=== PATIENT | female | born 1990 | race Caucasian/White ===

== ENCOUNTER 2023-07-05 03:18 | Emergency (ER) | payer MEDICAID ==
[~2023-07-05] VITALS: Ht 152.4 cm; Wt 49.9 kg
[2023-07-05 03:20] VITALS: BP 124/78; PULSE 110; RESP 16; TEMP 97.3; O2SAT 100
[2023-07-05] MEDS ORDERED: KETOROLAC 30 MG/ML VIAL IM ONE (05:50)
[2023-07-05] MEDS ORDERED: CLINDAMYCIN 900MG/D5W PM 50 ML IV ONE (06:45)
[2023-07-05] MEDS ORDERED: NACL 0.9% 1,000 ML IV ONE (06:45)
[2023-07-05 07:09] LABS: BASOPHILS % (AUTO) 0.3 % (0.0-2.0); EOSINOPHILS # (AUTO) 0.1 K/uL (0-0.4); EOSINOPHILS % (AUTO) 0.5 % (0.0-4.0); HEMATOCRIT 33.5 % (36-48); HEMOGLOBIN 11.6 g/dL (12.0-16.0); LYMPHOCYTES % (AUTO) 9.1 % (20.5-51.1); MEAN CORPUSCULAR HEMOGLOBIN 29 pg (27-31); MEAN CORPUSCULAR HGB CONC 35 g/dL (33-37); MONOCYTES # (AUTO) 0.9 K/uL (0.8-1.0); MONOCYTES % (AUTO) 8.3 % (1.7-9.3); NEUTROPHILS # (AUTO) 8.9 K/uL (1.8-7.7); NEUTROPHILS % (AUTO) 81.8 % (42.2-75.2); PLATELET COUNT (AUTO) 242 K/uL (140-450); RED BLOOD CELL COUNT(AUTO) 4.03 MIL/uL (4.20-5.40); RED CELL DISTRIBUTION WIDTH 12.6 % (11.6-13.7); WHITE BLOOD COUNT (AUTO) 10.9 K/uL (4.8-10.8)
[2023-07-05 07:27] LABS: ALBUMIN 3.3 g/dL (3.4-5.0); ANION GAP 12.4 (8-16); CALCIUM 8.7 mg/dL (8.5-10.1); CARBON DIOXIDE 22.7 mmol/L (21-32); CREATININE 0.6 mg/dL (0.6-1.3); POTASSIUM 3.1 mmol/L (3.5-5.1); TOTAL BILIRUBIN 1.2 mg/dL (0.0-1.0); TOTAL PROTEIN, SERUM 6.6 g/dL (6.4-8.2)
[2023-07-05 07:34] LABS: LACTIC ACID 0.5 mmol/L (0.4-2.0)
[2023-07-05 08:00] VITALS: O2SAT 100
[2023-07-05] MEDS ORDERED: VANCOMYCIN 1,000 MG in DEXTROSE 5% 250 ML IV ONE (10:05)
[2023-07-05] MEDS ORDERED: VANCOMYCIN 1,000 MG VIAL ONE (10:14)
[2023-07-05] MEDS ORDERED: MORPHINE SULFATE 2 MG/ML SYR IVP ONE (10:55)
[2023-07-05 11:04] VITALS: BP 101/68; PULSE 92; RESP 16; TEMP 98.1; O2SAT 99
== END 2023-07-05 11:04 | disposition short-term general hospital (02) ==
LOC: MED 03:18
DX: M27.2 Inflammatory conditions of jaws (principal); F17.210 Nicotine dependence, cigarettes, uncomplicated
CPT/HCPCS: 36415; 70487; 80053; 81025; 83605; 85025; 96365; 96367; 96372; 96375; 99285; J1885; J2270; J3370; J7030; Q9967